=== PATIENT | female | born 1965 | race Caucasian/White ===

== ENCOUNTER 2019-02-03 08:48 | Outpatient (REF) | payer BC, SELFPAY ==
[2019-02-03 13:43] LABS: Iron 148 ug/dL (50-175)
[2019-02-03 13:50] LABS: Anion Gap 10.9 mmol/L (3-11); BUN 14 mg/dL (7-18); CO2 27.1 mmol/L (21.0-32.0); CREATININE 0.74 mg/dL (0.55-1.02); Calcium 9.5 mg/dL (8.5-10.1); Chloride 102 mmol/L (98-107); Glucose 94 mg/dL (70-100); Potassium 4.1 mmol/L (3.5-5.1); Sodium 140 mmol/L (136-145); TSH (W/Ref FT4) 1.26 uIU/mL (0.358-3.74)
== END 2019-02-03 09:08 ==
LOC: NCHCN 08:48
PROVIDERS: PCP Obstetrics & Gynecology; Visit Provider Nurse Practitioner Family
DX: I10 Essential (primary) hypertension (principal); C50.919 Malignant neoplasm of unspecified site of unspecified female breast; E04.9 Nontoxic goiter, unspecified; Z86.2 Personal history of diseases of the blood and blood-forming organs and certain disorders involving the immune mechanism
CPT/HCPCS: 80048; 83540; 84443

== ENCOUNTER 2019-02-09 01:43 | Outpatient (CLI) | payer BC, SELFPAY ==
--- NOTE | 2019-02-09 12:53 | DI.US_ITS ---
SYMPTOMS/DIAGNOSIS: GOITER, E04.9 THYROID ULTRASOUND: Routine examination was performed. The right lobe measures 6.2 x 2.0 x 2.1 cm, the left lobe measures 5.8 x 1.2 x 1.6 cm. The isthmus measures 0.5 cm. There are multiple bilateral thyroid nodules. The nodules appear complex with both cystic and solid components. Blood flow is seen within several of the nodules. The largest nodule on the right measures 2 x 1 x 1.2 cm. The largest on the left measures 0.9 x 0.4 cm. There is symmetric blood flow to the thyroid gland. IMPRESSION: Multinodular thyroid gland.
== END 2019-02-09 02:03 ==
PROVIDERS: PCP Obstetrics & Gynecology; Visit Provider Nurse Practitioner Family
DX: E04.2 Nontoxic multinodular goiter (principal)
CPT/HCPCS: 76536

== ENCOUNTER 2019-04-01 11:19 | Outpatient (REF) | payer BC, SELFPAY | END 2019-04-01 11:39 | LOC: NCHCN 11:19 | PROVIDERS: PCP Nurse Practitioner Family; Visit Provider Nurse Practitioner Family | DX: E04.9 Nontoxic goiter, unspecified (principal) | CPT/HCPCS: 84443 ==

== ENCOUNTER 2019-08-11 10:23 | Outpatient (REF) | payer BC, SELFPAY ==
[2019-08-11 20:43] LABS: Iron 92 ug/dL (50-170)
== END 2019-08-11 10:43 ==
LOC: NCHCN 10:23
PROVIDERS: PCP Nurse Practitioner Family; Visit Provider Nurse Practitioner Family
DX: E04.9 Nontoxic goiter, unspecified (principal); I10 Essential (primary) hypertension; C50.919 Malignant neoplasm of unspecified site of unspecified female breast; Z86.2 Personal history of diseases of the blood and blood-forming organs and certain disorders involving the immune mechanism
CPT/HCPCS: 83540

== ENCOUNTER 2019-11-04 16:09 | Outpatient (REF) | payer BC, SELFPAY ==
[2019-11-04 22:30] LABS: Abs Immature Grans 0.01 k/cumm (0.0-0.09); Absolute Basophil Count 0.03 k/cumm (0.0-0.2); Absolute Eosinophil Count 0.03 k/cumm (0.0-0.7); Absolute Monocyte Count 0.98 k/cumm (0.11-0.7); Absolute Neutrophil Count 4.46 k/cumm (1.2-6.7); Basophils % 0.5; Eosinophils % 0.5; HCT 42.2 % (36.0-46.0); HGB 14.4 g/dL (12.0-15.5); Immature Grans % 0.2 %; Lymphocytes % 11.3; Mean Corp. HGB Concentration 34.1 g/dL (32.0-36.0); Mean Corpuscular Hemoglobin 33.5 pg (27.0-33.0); Mean Corpuscular Volume 98.1 fL (80-95); Mean Platelet Volume 9.7 fL (8.0-11.0); Monocytes % 15.8; Neutrophils % 71.7; Platelet Count 245 x1000/uL (130-400); RBC Distribution Width 13.2 % (11.7-14.6); White Blood Cell Count 6.21 k/cumm (4.4-10.8)
[2019-11-06 11:40] LABS: HSV Type 1 Ab, IgG Negative (Negative); HSV Type 2 Ab, IgG Negative (Negative)
== END 2019-11-04 16:29 ==
LOC: NCHCN 16:09
PROVIDERS: PCP Nurse Practitioner Family; Visit Provider Nurse Practitioner Family
DX: B00.1 Herpesviral vesicular dermatitis (principal)
CPT/HCPCS: 85025; 86695; 86696

== ENCOUNTER 2020-07-18 09:25 | Outpatient (REF) | payer BC, SELFPAY ==
[2020-07-18 21:33] LABS: Anion Gap 10.6 mmol/L (3-11); BUN 13 mg/dL (7-18); CO2 25.4 mmol/L (21.0-32.0); CREATININE 0.76 mg/dL (0.55-1.02); Calcium 9.5 mg/dL (8.5-10.1); Chloride 103 mmol/L (98-107); Glucose 90 mg/dL (74-106); Potassium 4.2 mmol/L (3.5-5.1); Sodium 139 mmol/L (136-145); TSH (W/Ref FT4) 0.18 uIU/mL (0.36-3.74)
[2020-07-18 21:37] LABS: COMMENT (LAB VIEW ONLY) 16.24 mg/dL; Microalb ug/mg Crea 10.5 ug/mg Cr
[2020-07-18 22:37] LABS: FREE T4 0.99 ng/dL (0.76-1.46)
== END 2020-07-18 09:45 ==
LOC: NCHCN 09:25
PROVIDERS: PCP Nurse Practitioner Family; Visit Provider Nurse Practitioner Family
DX: I10 Essential (primary) hypertension (principal); E04.9 Nontoxic goiter, unspecified
CPT/HCPCS: 80048; 82043; 82570; 84439; 84443

== ENCOUNTER 2020-08-31 14:54 | Outpatient (REF) | payer BC, SELFPAY ==
[2020-08-31 22:17] LABS: TSH (W/Ref FT4) 2.18 uIU/mL (0.36-3.74)
== END 2020-08-31 15:14 ==
LOC: NCHCN 14:54
PROVIDERS: PCP Nurse Practitioner Family; Visit Provider Nurse Practitioner Family
DX: E04.9 Nontoxic goiter, unspecified (principal); E66.9 Obesity, unspecified
CPT/HCPCS: 84443

== ENCOUNTER 2021-02-23 14:12 | Outpatient (REF) | payer BC, SELFPAY ==
[2021-02-23 14:57] LABS: Anion Gap 8.6 mmol/L (3-11); BUN 12 mg/dL (7-18); CO2 28.4 mmol/L (21.0-32.0); CREATININE 0.8 mg/dL (0.55-1.02); Calcium 9.4 mg/dL (8.5-10.1); Chloride 103 mmol/L (98-107); Glucose 86 mg/dL (74-106); Potassium 4.6 mmol/L (3.5-5.1); Sodium 140 mmol/L (136-145)
== END 2021-02-23 14:13 | disposition home or self-care (01) ==
LOC: NCHCN 14:12
PROVIDERS: PCP Nurse Practitioner Family; Visit Provider Nurse Practitioner Family
DX: I10 Essential (primary) hypertension (principal)
CPT/HCPCS: 80048

== ENCOUNTER 2021-04-04 11:20 | Outpatient (REF) | payer BC, SELFPAY ==
--- NOTE | 2021-04-04 09:30 | PAPFT_PTH ---
PATIENT: Suma Romero LOC: [facility]#:[id number] AGE/SX: 55/F ROOM: RE04/04/[address]: Kassy Cruz : 1965 BED: DIS: 04/04/2021 SPEC #: [id number] RECD: 04/04/21 13:07 STATUS: BRANDON CALLAHAN #: [id number] ASHIA: 04/04/21 09:[address]: Kassy Cruz DEPT: [facility] Cytology RECD BY: Rose Farley Tissues: 1 - CX/ENDOCX FOR PAP SMEARS Procedures: PAP THIN PREP/[facility] Screening HPV DNA PROBE Comments: [id number]
== END 2021-04-04 11:21 | disposition home or self-care (01) ==
LOC: NCHCN 11:20
PROVIDERS: PCP Nurse Practitioner Family; Visit Provider Nurse Practitioner Family
DX: L29.8 Other pruritus (principal); N39.46 Mixed incontinence; Z00.00 Encounter for general adult medical examination without abnormal findings; Z12.4 Encounter for screening for malignant neoplasm of cervix; Z01.419 Encounter for gynecological examination (general) (routine) without abnormal findings; Z11.51 Encounter for screening for human papillomavirus (HPV)
CPT/HCPCS: 88142; 87480; 87510; 87624; 87660

== ENCOUNTER 2022-05-17 15:29 | Outpatient (REF) | payer BC, SELFPAY ==
[2022-05-17 15:18] LABS: BUN 11 mg/dL (7-18); CREATININE 0.8 mg/dL (0.55-1.02); Calcium 9.6 mg/dL (8.5-10.1); Calculated LDL 133 mg/dL (<100); Chloride 102 mmol/L (98-107); Cholesterol 246 mg/dL (<200); Glucose 111 mg/dL (74-106); HDL Cholesterol 43 mg/dL (40-60); Potassium 4.3 mmol/L (3.5-5.1); Sodium 140 mmol/L (136-145); TSH 1.55 uIU/mL (0.36-3.74); Triglyceride 353 mg/dL (<150)
[2022-05-17 16:01] LABS: FREE T4 0.87 ng/dL (0.76-1.46)
[2022-05-17 16:49] LABS: Hemoglobin A1C 5.5 % (<5.7)
== END 2022-05-17 15:30 | disposition home or self-care (01) ==
LOC: NCHCN 15:29
PROVIDERS: PCP Nurse Practitioner Family; Visit Provider Family Medicine
DX: Z00.00 Encounter for general adult medical examination without abnormal findings (principal); I10 Essential (primary) hypertension; B00.1 Herpesviral vesicular dermatitis; K30 Functional dyspepsia; N39.46 Mixed incontinence; E66.3 Overweight; E04.9 Nontoxic goiter, unspecified
CPT/HCPCS: 80048; 80061; 83036; 84439; 84443

== ENCOUNTER 2022-12-11 12:57 | Outpatient (REF) | payer BC, SELFPAY ==
[2022-12-11 16:41] LABS: Hemoglobin A1C 5.9 % (<5.7)
== END 2022-12-11 12:58 | disposition home or self-care (01) ==
LOC: NCHCN 12:57
PROVIDERS: PCP Nurse Practitioner Family; Visit Provider Nurse Practitioner Family
DX: E88.81 Metabolic syndrome and other insulin resistance (principal); E66.9 Obesity, unspecified; R73.09 Other abnormal glucose
CPT/HCPCS: 83036

== ENCOUNTER 2023-05-21 10:43 | Outpatient (REF) | payer BC, SELFPAY ==
[2023-05-21 16:42] LABS: Anion Gap 12.2 mmol/L (3-11); BUN 12 mg/dL (7-18); CO2 24.8 mmol/L (21.0-32.0); CREATININE 0.8 mg/dL (0.55-1.02); Calcium 9.7 mg/dL (8.5-10.1); Calculated LDL 128 mg/dL (<100); Chloride 101 mmol/L (98-107); Cholesterol 218 mg/dL (<200); Estimated GFR 86.96 (mL/min/1.73m2); Glucose 112 mg/dL (74-106); HDL Cholesterol 55 mg/dL (40-60); Potassium 4.1 mmol/L (3.5-5.1); Sodium 138 mmol/L (136-145); TSH (W/Ref FT4) 1.47 uIU/mL (0.36-3.74); Triglyceride 177 mg/dL (<150)
[2023-05-21 17:06] LABS: Hemoglobin A1C 5.7 % (<5.7)
== END 2023-05-21 10:44 | disposition home or self-care (01) ==
LOC: NCHCN 10:43
PROVIDERS: PCP Nurse Practitioner Family; Visit Provider Nurse Practitioner Family
DX: Z00.00 Encounter for general adult medical examination without abnormal findings (principal); I10 Essential (primary) hypertension; E78.5 Hyperlipidemia, unspecified; R73.03 Prediabetes; E04.9 Nontoxic goiter, unspecified; K30 Functional dyspepsia
CPT/HCPCS: 80048; 80061; 83036; 84443

== ENCOUNTER 2024-02-11 08:42 | Outpatient (REF) | payer OTHER, SELFPAY ==
[2024-02-11 15:44] LABS: Bilirubin Negative (Negative); Blood Negative (Negative); Clarity Clear (Clear); Glucose Negative (Negative); Ketones Negative (Negative); Leukocyte Esterase Negative (Negative); Nitrite Negative (Negative); Specific Gravity 1.015 (1.005-1.025); Urobilinogen 0.2 mg/dL (Up to 0.2); pH 5.5 (5-8)
[2024-02-11 16:39] LABS: COMMENT (LAB VIEW ONLY) 64.48 mg/dL; Microalb ug/mg Crea 4.2 ug/mg Cr
== END 2024-02-11 08:43 | disposition home or self-care (01) ==
LOC: NCHCN 08:42
PROVIDERS: PCP Nurse Practitioner Family; Visit Provider Nurse Practitioner Family
DX: I10 Essential (primary) hypertension (principal)
CPT/HCPCS: 81003; 82043; 82570

== ENCOUNTER 2024-08-06 10:55 | Outpatient (REF) | payer OTHER, SELFPAY ==
[2024-08-06 14:49] LABS: Hemoglobin A1C 5.5 % (<5.7)
[2024-08-06 15:01] LABS: ALT 61 U/L (14-59); AST 34 U/L (15-37); Albumin 4.6 g/dL (3.4-5.0); Alkaline Phosphatase 88 U/L (46-116); Anion Gap 8.9 mmol/L (3-11); BUN 11 mg/dL (7-18); Bilirubin, Total 0.72 mg/dL (0.2-1.0); CO2 29.1 mmol/L (21.0-32.0); CREATININE 0.9 mg/dL (0.55-1.02); Calcium 9.9 mg/dL (8.5-10.1); Calculated LDL 145 mg/dL (<100); Chloride 103 mmol/L (98-107); Cholesterol 230 mg/dL (<200); Estimated GFR 75.03 (mL/min/1.73m2); Glucose 88 mg/dL (74-106); HDL Cholesterol 62 mg/dL (40-60); Potassium 4.5 mmol/L (3.5-5.1); Sodium 141 mmol/L (136-145); TSH (W/Ref FT4) 1.22 uIU/mL (0.36-3.74); Total Protein 7.7 g/dL (6.4-8.2); Triglyceride 116 mg/dL (<150)
== END 2024-08-06 10:56 | disposition home or self-care (01) ==
LOC: NCHCN 10:55
PROVIDERS: PCP Nurse Practitioner Family; Visit Provider Nurse Practitioner Family
DX: I10 Essential (primary) hypertension (principal); E78.5 Hyperlipidemia, unspecified; R73.03 Prediabetes; E04.9 Nontoxic goiter, unspecified
CPT/HCPCS: 80053; 80061; 83036; 84443

== ENCOUNTER 2025-02-08 13:56 | Outpatient (REF) | payer OTHER, SELFPAY ==
[2025-02-08 15:22] LABS: Abs Immature Grans 0.03 10^3/uL (0.0-0.06); Absolute Basophil Count 0.08 10^3/uL (0.0-0.2); Absolute Eosinophil Count 0.23 10^3/uL (0.0-0.7); Absolute Lymphocyte Count 1.38 10^3/uL (1.2-3.4); Absolute Monocyte Count 0.48 10^3/uL (0.1-0.8); Absolute Neutrophil Count 4.62 10^3/uL (1.2-6.7); Basophils % 1.2 %; Eosinophils % 3.4 %; HCT 44.2 % (36.0-46.0); HGB 14.7 g/dL (11.2-15.7); Immature Grans % 0.4 %; Lymphocytes % 20.2 %; MCH 31.7 pg (27.0-33.0); MCHC 33.3 % (32.0-36.0); MCV 96 fL (80-95); MPV 9.5 fL (8.0-11.0); Neutrophils % 67.8 %; Platelet Count 281 10^3/uL (130-400); RBC 4.63 10^6/uL (3.93-5.22); RDW 12.4 % (11.7-14.6); RDW-SD 43.4 fL; WBC 6.82 10^3/uL (4.4-10.8)
[2025-02-08 15:57] LABS: ALT 108 U/L (14-59); AST 37 U/L (15-37); Albumin 4.5 g/dL (3.4-5.0); Alkaline Phosphatase 91 U/L (46-116); Anion Gap 9.8 mmol/L (3-11); BUN 12 mg/dL (7-18); Bilirubin, Direct 0.1 mg/dL (0.0-0.2); Bilirubin, Total 0.5 mg/dL (0.2-1.0); CO2 27.2 mmol/L (21.0-32.0); Calcium 9.5 mg/dL (8.5-10.1); Chloride 103 mmol/L (98-107); Estimated GFR 65.71 (mL/min/1.73m2); Glucose 84 mg/dL (74-106); Potassium 4.5 mmol/L (3.5-5.1); Sodium 140 mmol/L (136-145); Total Protein 7.5 g/dL (6.4-8.2)
== END 2025-02-08 13:57 | disposition home or self-care (01) ==
LOC: NCHCN 13:56
PROVIDERS: PCP Nurse Practitioner Family; Visit Provider Nurse Practitioner Family
DX: R94.5 Abnormal results of liver function studies (principal)
CPT/HCPCS: 80053; 80076; 85025

== ENCOUNTER 2025-02-15 12:43 | Outpatient (REF) | payer OTHER, SELFPAY ==
[2025-02-15 15:24] LABS: Bilirubin Negative (Negative); Blood Negative (Negative); Clarity Clear (Clear); Glucose Negative (Negative); Ketones Trace mg/dL (Negative); Leukocyte Esterase Trace (Negative); Nitrite Negative (Negative); Specific Gravity 1.015 (1.005-1.025)
[2025-02-15 15:42] LABS: Bacteria Rare HPF (Negative); C & S Indicated? No; Casts Negative LPF (Negative); Crystals Negative HPF (Negative); Epithelial Cells Rare HPF (Negative); Mucus Trace (Negative); RBC Negative HPF (0-2); WBC 0-2 HPF (0-5)
[2025-02-15 16:18] LABS: COMMENT (LAB VIEW ONLY) 38.45 mg/dL; Microalb ug/mg Crea 14.8 ug/mg Cr
== END 2025-02-15 12:44 | disposition home or self-care (01) ==
LOC: NCHCN 12:43
PROVIDERS: PCP Nurse Practitioner Family; Visit Provider Nurse Practitioner Family
DX: I10 Essential (primary) hypertension (principal)
CPT/HCPCS: 81003; 81015; 82043; 82570

== ENCOUNTER 2025-08-03 10:02 | Outpatient (REF) | payer OTHER, SELFPAY ==
[2025-08-03 16:16] LABS: TSH (W/Ref FT4) 1.48 uIU/mL (0.55-4.78)
[2025-08-03 16:18] LABS: ALT 21 U/L (10-49); AST 18 U/L (<34); Albumin 4.6 g/dL (3.2-5.0); Alkaline Phosphatase 84 U/L (46-116); Anion Gap 11.6 mmol/L (3-11); BUN 15 mg/dL (9-23); Bilirubin, Total 0.50 mg/dL (0.2-1.2); CO2 24.4 mmol/L (20.0-31.0); Calcium 9.5 mg/dL (8.3-10.6); Chloride 106 mmol/L (98-107); Glucose 88 mg/dL (74-106); Potassium 4.4 mmol/L (3.5-5.1); Sodium 142 mmol/L (136-145); Total Protein 7.0 g/dL (5.7-8.2)
[2025-08-03 16:22] LABS: Hemoglobin A1C 5.2 % (<5.7)
[2025-08-04 19:26] LABS: Hepatitis A Antibody IgM Negative (Negative); Hepatitis C Ab w Rflx HCV PCR Negative (Negative)
== END 2025-08-03 10:03 | disposition home or self-care (01) ==
LOC: NCHCN 10:02
PROVIDERS: PCP Nurse Practitioner Family; Visit Provider Nurse Practitioner Family
DX: R94.5 Abnormal results of liver function studies (principal); E03.9 Hypothyroidism, unspecified; R73.03 Prediabetes
CPT/HCPCS: 80053; 86704; 86709; 86803; 87340; 83036; 84443